=== PATIENT | female | born 1990 | race Caucasian/White ===

== ENCOUNTER → 2017-07-09 | Outpatient (CLI) | payer BC | LOC: M LAB 13:04 | PROVIDERS: ATTEND Family Medicine | DX: Z00.00 Encounter for general adult medical examination without abnormal findings (principal) ==

== ENCOUNTER → 2017-07-13 | Outpatient (REF) | payer BC | LOC: M LAB REF 12:45 | PROVIDERS: ATTEND Family Medicine | DX: N72 Inflammatory disease of cervix uteri (principal) | CPT/HCPCS: 87491; 87591; G0123 ==

== ENCOUNTER → 2017-10-04 | Outpatient (REF) | payer BC | LOC: M LAB REF 19:52 | PROVIDERS: ATTEND Physician Assistant | DX: J02.9 Acute pharyngitis, unspecified (principal) ==

== ENCOUNTER → 2017-11-15 | Outpatient (REF) | payer BC ==
[2017-11-15 14:13] LABS: HCG, SERUM QUANTITATIVE 12 MIU/ML
== END ==
LOC: M LAB REF 12:28
DX: O36.80X0 Pregnancy with inconclusive fetal viability, not applicable or unspecified (principal); Z32.02 Encounter for pregnancy test, result negative
CPT/HCPCS: 84702

== ENCOUNTER 2017-11-17 14:40 | Emergency (ER) | payer BC ==
[2017-11-17 16:56] LABS: MEAN CORPUSCULAR HEMOGLOBIN 26.9 pg (27.0-33.0); MEAN CORPUSCULAR HGB CONC 32.4 g/dl (32.0-36.5); MEAN CORPUSCULAR VOLUME 82.9 fl (80.0-96.0); PLATELET COUNT, AUTOMATED 268 10^3/uL (150-450); RED CELL DISTRIBUTION WIDTH 13.3 % (11.5-14.5); WHITE BLOOD COUNT 7.2 10^3/uL (4.0-10.0)
[2017-11-17 17:21] LABS: HCG, SERUM QUANTITATIVE 4 MIU/ML
== END 2017-11-17 18:35 | disposition home or self-care (01) ==
LOC: M ED 14:40
DX: O03.9 Complete or unspecified spontaneous abortion without complication (principal); Z88.0 Allergy status to penicillin
CPT/HCPCS: 76801

== ENCOUNTER → 2017-11-20 | Outpatient (REF) | payer SELFPAY ==
[2017-11-20 18:22] LABS: HCG, SERUM QUANTITATIVE < 1.0 MIU/ML
== END ==
LOC: M LAB REF 16:55
DX: O03.9 Complete or unspecified spontaneous abortion without complication (principal)

== ENCOUNTER → 2018-01-14 | Outpatient (REF) | payer SELFPAY ==
[2018-01-14 18:08] LABS: HEMATOCRIT 38.3 % (36.0-47.0); HEMOGLOBIN 12.3 g/dl (12.0-16.0); MEAN CORPUSCULAR HEMOGLOBIN 26.9 pg (27.0-33.0); MEAN CORPUSCULAR HGB CONC 32.1 g/dl (32.0-36.5); MEAN CORPUSCULAR VOLUME 83.8 fl (80.0-96.0); PLATELET COUNT, AUTOMATED 271 10^3/uL (150-450); RED BLOOD COUNT 4.57 10^6/uL (4.00-5.40); RED CELL DISTRIBUTION WIDTH 13.7 % (11.5-14.5); WHITE BLOOD COUNT 11.8 10^3/uL (4.0-10.0)
[2018-01-14 18:43] LABS: HCG, SERUM QUANTITATIVE 22479 MIU/ML
[2018-01-16 11:28] LABS: RUBELLA IgG QUALITATIVE IMMUNE (IMMUNE)
[2018-01-16 11:32] LABS: HEPATITIS B SURFACE ANTIGEN NEGATIVE (NEGATIVE)
[2018-01-16 11:57] LABS: HIV 1&2 SCREEN CENTAUR NEGATIVE (NEGATIVE)
[2018-01-16 11:57] LABS: HEPATITIS C VIRUS ABY INDEX 0.1 INDEX (<0.8)
== END ==
LOC: M LAB REF 17:03
DX: O36.80X0 Pregnancy with inconclusive fetal viability, not applicable or unspecified (principal)

== ENCOUNTER → 2018-02-13 | Outpatient (REF) | payer BC ==
[2018-02-13 19:09] LABS: CHLAMYDIA DNA AMPLIFICATION NEGATIVE (NEGATIVE); GC DNA AMPLIFICATION NEGATIVE (NEGATIVE)
== END ==
LOC: M LAB REF 17:09
DX: Z11.3 Encounter for screening for infections with a predominantly sexual mode of transmission (principal)
CPT/HCPCS: 87591

== ENCOUNTER → 2018-06-19 | Outpatient (CLI) | payer BC ==
[2018-06-19 14:29] LABS: HEMATOCRIT 34.5 % (36.0-47.0); HEMOGLOBIN 11.4 g/dl (12.0-15.5); MEAN CORPUSCULAR HEMOGLOBIN 27.8 pg (27.0-33.0); MEAN CORPUSCULAR VOLUME 84.1 fl (80.0-96.0); PLATELET COUNT, AUTOMATED 246 10^3/uL (150-450); RED CELL DISTRIBUTION WIDTH 13.6 % (11.5-14.5)
[2018-06-19 14:42] LABS: GLUCOSE CHALLENGE TEST 1 HOUR 121 MG/DL (LESS THAN 140)
== END ==
LOC: M LAB 12:10
DX: Z34.82 Encounter for supervision of other normal pregnancy, second trimester (principal); Z3A.00 Weeks of gestation of pregnancy not specified
CPT/HCPCS: 82950

== ENCOUNTER → 2018-07-30 | Outpatient (REF) | payer BC ==
[2018-07-30 19:03] LABS: TOTAL PROTEIN,RANDOM URINE 11.9 MG/DL (0.0-12.0)
[2018-07-30 19:03] LABS: CREATININE,RANDOM URINE 80.9 MG/DL
== END ==
LOC: M LAB REF 16:50
DX: Z34.83 Encounter for supervision of other normal pregnancy, third trimester (principal); R03.0 Elevated blood-pressure reading, without diagnosis of hypertension
CPT/HCPCS: 82570

== ENCOUNTER → 2018-08-08 | Outpatient (REF) | payer BC | LOC: M LAB REF 13:38 | DX: O13.3 Gestational [pregnancy-induced] hypertension without significant proteinuria, third trimester (principal) ==

== ENCOUNTER → 2018-08-27 | Outpatient (REF) | payer BC ==
[2018-08-27 19:24] LABS: CREATININE,RANDOM URINE 47.8 MG/DL
[2018-08-27 19:24] LABS: TOTAL PROTEIN,RANDOM URINE 10.7 MG/DL (0.0-12.0)
[2018-08-27 20:11] LABS: HEMATOCRIT 36.6 % (36.0-47.0); HEMOGLOBIN 11.7 g/dl (12.0-15.5); MEAN CORPUSCULAR HEMOGLOBIN 27.3 pg (27.0-33.0); MEAN CORPUSCULAR VOLUME 85.5 fl (80.0-96.0); PLATELET COUNT, AUTOMATED 240 10^3/uL (150-450); RED BLOOD COUNT 4.28 10^6/uL (4.00-5.40); RED CELL DISTRIBUTION WIDTH 13.9 % (11.5-14.5); WHITE BLOOD COUNT 12.2 10^3/uL (4.0-10.0)
[2018-08-27 20:30] LABS: ALT/SGPT 15 U/L (12-78); AST/SGOT 10 U/L (7-37); BILIRUBIN,TOTAL 0.5 MG/DL (0.2-1.0); CREATININE FOR GFR 0.67 MG/DL (0.55-1.30); GLOMERULAR FILTRATION RATE > 60.0 (>60); LDH LACTATE DEHYDROGENASE 142 U/L (84-246); URIC ACID 3.2 MG/DL (2.6-6.0)
== END ==
LOC: M LAB REF 16:35
DX: O13.3 Gestational [pregnancy-induced] hypertension without significant proteinuria, third trimester (principal); Z3A.37 37 weeks gestation of pregnancy
CPT/HCPCS: 84460

== ENCOUNTER 2018-09-04 04:11 | Inpatient (IN) | payer BC ==
[2018-09-04 05:39] LABS: BASO % 0.2 % (0.0-1.0); EOS # 0.2 10^3/uL (0.0-0.50); EOS % 1.2 % (0.0-3.0); HEMATOCRIT 37.4 % (36.0-47.0); HEMOGLOBIN 12.4 g/dl (12.0-15.5); IMMATURE GRANULOCYTE % 0.6 % (0-3.0); LYMPH # 2.4 10^3/uL (1.5-6.5); LYMPH % 17.6 % (24.0-44.0); MEAN CORPUSCULAR HEMOGLOBIN 27.6 pg (27.0-33.0); MEAN CORPUSCULAR HGB CONC 33.2 g/dl (32.0-36.5); MEAN CORPUSCULAR VOLUME 83.1 fl (80.0-96.0); MONO # 0.7 10^3/uL (0.0-0.8); MONO % 5.4 % (0.0-5.0); NEUTROPHILS # 10.4 10^3/uL (1.8-7.7); PLATELET COUNT, AUTOMATED 239 10^3/uL (150-450); WHITE BLOOD COUNT 13.8 10^3/uL (4.0-10.0)
[2018-09-04] MEDS ORDERED: FENTANYL 2MCG/ML ROPIVACAINE 0.2% IN 0.9% NACL 200ML IVBAG As Ordered (06:33)
[2018-09-04] MEDS: FENTANYL/ROPIVACAINE/NACL BAG 200 ML EPIDURAL (07:08)
[2018-09-04] MEDS ORDERED: EPIDURAL COMMENT XX (07:30)
[2018-09-04] MEDS ORDERED: EPIDURAL/PCA KEYS XX (07:30)
[2018-09-04] MEDS ORDERED: diphenhydrAMINE INJ 50MG/ML VIAL (J1200) IV (07:30)
[2018-09-04] MEDS ORDERED: ONDANSETRON 4MG/2ML VIAL (J2405) IV (07:30)
[2018-09-04] MEDS ORDERED: REFRIGERATOR IV KEYS XX (07:30)
[2018-09-04] MEDS ORDERED: NALOXONE INJ 0.4 MG/1 ML VIAL (J2310) IV (07:30)
[2018-09-04] MEDS ORDERED: ePHEDrine SULFATE 25 MG/5 ML(5MG/ML) SYRINGE IV (07:30)
[2018-09-04] MEDS ORDERED: LACTATED RINGER'S 1000 ML IV (07:30)
[2018-09-04] MEDS: OXYTOCIN DRIP 30 UNITS in APPROPRIATE DILUENT 1 EA IV (08:37)
[2018-09-04] MEDS: LR 1,000 ML IV (11:17)
[2018-09-04] MEDS ORDERED: OXYTOCIN DRIP 30 UNITS in APPROPRIATE DILUENT 1 EA IV (14:17)
[2018-09-04] MEDS ORDERED: RHOGAM 300 MCG (1500 IU) INJ (J2790) IM (14:30)
[2018-09-04] MEDS ORDERED: METHYLERGONOVINE MALEATE 0.2 MG TAB PO (14:30)
[2018-09-04] MEDS ORDERED: MEASLES,MUMPS,RUBELLA VACCINE INJ (MMR-II) (90707) SC (14:30)
[2018-09-04] MEDS ORDERED: ANUSOL HC CREAM 30GM TOP (14:30)
[2018-09-04 14:33] LABS: CORD GAS HCO3 V 21.8 MEQ/L; CORD GAS O2 SAT V 53.2 %; CORD GAS PCO2 V 51.6 mmHg; CORD GAS PH V 7.243 UNITS; CORD GAS PO2 V 27.6 mmHg; CORD GAS SBC V 18.6 MEQ/L; CORD GAS TCO2 V 23.4 MEQ/L
[2018-09-04 14:37] LABS: CORD GAS ABE A -6.6; CORD GAS HCO3 A 23.1 MEQ/L; CORD GAS O2 SAT A 20.6 %; CORD GAS PH A 7.168 UNITS; CORD GAS PO2 A 14.4 mmHg; CORD GAS SBC A 17.5 MEQ/L; CORD GAS TCO2 A 25.1 MEQ/L
[2018-09-04] MEDS: IBUPROFEN 800 MG TAB PO (20:07)
[2018-09-05] MEDS: IBUPROFEN 800 MG TAB PO ×3 (03:16→20:00)
[2018-09-05] MEDS: PRENATAL VITAMINS CHEWABLE TABLET PO (09:43)
[2018-09-05] MEDS: INFLUENZA QUADRIVALENT PF VACCINE 0.5ML SYRINGE (90686) IM (10:24)
[2018-09-05] MEDS: ACETAMINOPHEN 500 MG TAB PO (16:31)
[2018-09-05] MEDS: DIBUCAINE 1% OINTMENT 30GM TOP (20:00)
[2018-09-05] MEDS: DOCUSATE SODIUM 100 MG CAP PO (20:00)
[2018-09-06] MEDS: IBUPROFEN 800 MG TAB PO (05:31)
[2018-09-06] MEDS: PRENATAL VITAMINS CHEWABLE TABLET PO (08:50)
[2018-09-06] MEDS: ACETAMINOPHEN 500 MG TAB PO (08:55)
== END 2018-09-06 12:05 | disposition home or self-care (01) | DRG 560 ==
LOC: M LDO 04:11 → M LDI 05:13 → M OBS 16:31
PROVIDERS: Obstetrics & Gynecology
PROC: 10E0XZZ Delivery of Products of Conception, External Approach (ICD-10-PCS; principal; 2018-09-04)
DX: O69.81X0 Labor and delivery complicated by cord around neck, without compression, not applicable or unspecified (principal); Z3A.39 39 weeks gestation of pregnancy; Z37.0 Single live birth

== ENCOUNTER → 2019-11-07 | Outpatient (CLI) | payer BC ==
[~2019-11-07] MED LIST: IBUP-1114 PO; MAPA500T2 PO; PRENTAB9 PO
[2019-11-07 18:20] LABS: BASO % 0.4 % (0.0-1.0); EOS # 0.1 10^3/uL (0.0-0.5); EOS % 1.6 % (0.0-3.0); HEMATOCRIT 41.2 % (36.0-47.0); MEAN CORPUSCULAR HEMOGLOBIN 26.2 pg (27.0-33.0); MEAN CORPUSCULAR HGB CONC 31.6 g/dl (32.0-36.5); MEAN CORPUSCULAR VOLUME 82.9 fl (80.0-96.0); MONO # 0.7 10^3/uL (0.0-0.8); MONO % 8.2 % (0.0-5.0); NEUTROPHILS # 3.7 10^3/uL (1.5-8.5); NEUTROPHILS % 42.7 % (36.0-66.0); PLATELET COUNT, AUTOMATED 295 10^3/uL (150-450); RED BLOOD COUNT 4.97 10^6/uL (4.00-5.40); WHITE BLOOD COUNT 8.6 10^3/uL (4.0-10.0)
[2019-11-07 19:09] LABS: HIV 1&2 SCREEN CENTAUR NEGATIVE (NEGATIVE); RUBELLA IgG QUALITATIVE IMMUNE (IMMUNE)
[2019-11-07 19:56] LABS: CHLAMYDIA DNA AMPLIFICATION NEGATIVE (NEGATIVE); GC DNA AMPLIFICATION NEGATIVE (NEGATIVE)
[2019-11-10 10:14] LABS: HEPATITIS C VIRUS ABY INDEX 0.2 INDEX (<0.8)
== END ==
LOC: M PLALAB 15:56
PROVIDERS: ATTEND Advanced Practice Midwife
DX: Z34.81 Encounter for supervision of other normal pregnancy, first trimester (principal)

== ENCOUNTER → 2019-11-13 | Outpatient (CLI) | payer BC ==
--- NOTE | 2019-11-13 14:31 | REP ---
Clinical: Dating and viability. Technique: As abdominal and transvaginal first trimester obstetrical ultrasound with color Doppler evaluation. Findings: Single live early intrauterine is appreciated. Gestational sac with yolk sac and pole identified. [place]-rump length of 27 mm corresponds to 9 weeks 3 days gestational age with estimated date of delivery 06/14/2020 . heart rate equals 171 beats per minute. Adjacent ovoid anechoic collection is appreciated which may represent a subchorionic hemorrhage or non-developed twin gestation (based on the given history by patient). Impression: 1. Single live early intrauterine at 9 weeks 3 days gestational age. 2. Curvilinear collection adjacent to the normal may represent a subchorionic hemorrhage or involuting empty twin gestational sac. 3. Complete anatomical assessment should be performed and 19-20 weeks. Electronically Signed by Ermais Campuzano MD 11/13/2019 02:23 P
== END ==
LOC: M RAD 13:33
PROVIDERS: ATTEND Advanced Practice Midwife
DX: Z34.81 Encounter for supervision of other normal pregnancy, first trimester (principal); Z3A.09 9 weeks gestation of pregnancy

== ENCOUNTER → 2020-01-28 | Outpatient (CLI) | payer BC | LOC: M PLALAB 15:22 | PROVIDERS: ATTEND Nurse Practitioner Women's Health | DX: Z13.79 Encounter for other screening for genetic and chromosomal anomalies (principal) ==

== ENCOUNTER → 2020-02-23 | Outpatient (CLI) | payer BC ==
--- NOTE | 2020-02-23 12:41 | REP ---
OB ULTRASOUND: Real-time sonographic evaluation of the gravid uterus is performed. There is a single living intrauterine gestation. The estimated gestational age is 24 weeks 0 days, EDC 06/14/2020. Today's measurements indicate appropriate growth. Biometry and Growth: BPD 57 mm = 23 weeks 4 days, 36th percentile HC 215 mm = 23 weeks 4 days, 34th percentile AC 187 mm = 23 weeks 3 days, 39th percentile FL 42 mm = 23 weeks 4 days, 38th percentile HC/AC ratio 1.15 within normal range of 1.02 to 1.21. Estimated weight 601 grams, 30th percentile. SEEN/GROSSLY UNREMARKABLE Lateral ventricles Yes Posterior fossa Yes Upper lip No Four-chamber heart Yes LVOT Yes RVOT Yes Stomach Yes Cord insertion Yes Three vessel cord Yes Kidneys Yes Bladder Yes Spine Yes Cervical length: Closed and measures 3.3 cm in length. heart rate: 144 beats per minute. position: Breech. Placenta: Posterior and grade 0 with no previa or abruption. Amniotic fluid: Within normal limits.
== END ==
LOC: M WHC 09:47
PROVIDERS: ATTEND Advanced Practice Midwife
DX: O99.341 Other mental disorders complicating pregnancy, first trimester (principal); F99 Mental disorder, not otherwise specified; Z3A.24 24 weeks gestation of pregnancy

== ENCOUNTER → 2020-03-19 | Outpatient (CLI) | payer BC ==
[2020-03-19 13:16] LABS: HEMATOCRIT 37.2 % (36.0-47.0); MEAN CORPUSCULAR HEMOGLOBIN 27.3 pg (27.0-33.0); MEAN CORPUSCULAR HGB CONC 32.3 g/dl (32.0-36.5); MEAN CORPUSCULAR VOLUME 84.5 fl (80.0-96.0); PLATELET COUNT, AUTOMATED 240 10^3/uL (150-450); WHITE BLOOD COUNT 9.8 10^3/uL (4.0-10.0)
== END ==
LOC: M LAB 11:03
PROVIDERS: ATTEND Advanced Practice Midwife
DX: Z34.92 Encounter for supervision of normal pregnancy, unspecified, second trimester (principal); Z36.89 Encounter for other specified antenatal screening

== ENCOUNTER → 2020-04-09 | Outpatient (CLI) | payer BC | LOC: M LAB 07:47 | PROVIDERS: ATTEND Advanced Practice Midwife | DX: O99.810 Abnormal glucose complicating pregnancy (principal) ==

== ENCOUNTER → 2020-05-18 | Outpatient (REF) | payer BC | LOC: M SFHCWAGY 10:28 | PROVIDERS: ATTEND Obstetrics & Gynecology | DX: Z34.83 Encounter for supervision of other normal pregnancy, third trimester (principal); Z3A.36 36 weeks gestation of pregnancy ==

== ENCOUNTER → 2020-06-03 | Outpatient (CLI) | payer BC ==
[~2020-06-03] MED LIST changes: +DOCU100C16 PO; +IBUP80TA PO; +OXYC1TAB23 PO
== END ==
LOC: M LABSMTC 11:40
PROVIDERS: ATTEND Anesthesiology
DX: Z01.818 Encounter for other preprocedural examination (principal); Z11.59 Encounter for screening for other viral diseases
CPT/HCPCS: C9803; U0003

== ENCOUNTER 2020-06-08 05:25 | Inpatient (IN) | payer BC ==
[~2020-06-08] VITALS: Ht 170.2 cm; Wt 113.2 kg
[2020-06-08] VITALS (7 sets, daily range): BP systolic 111–134; BP diastolic 61–79
[~2020-06-08 05:25] MED LIST changes: -DOCU100C16 PO; -IBUP80TA PO; -OXYC1TAB23 PO
[2020-06-08] MEDS ORDERED: BICITRA 30ML SOLN UDC PO ONE (06:00)
[2020-06-08] MEDS ORDERED: ceFAZolin SOD 2 GM in IV 1 EA IV ONE (06:00)
[2020-06-08] MEDS ORDERED: LR 1,000 ML IV ONE (06:00)
[2020-06-08 06:41] LABS: HEMATOCRIT 34.8 % (36.0-47.0); HEMOGLOBIN 11.2 g/dl (12.0-15.5); MEAN CORPUSCULAR HEMOGLOBIN 26.6 pg (27.0-33.0); MEAN CORPUSCULAR HGB CONC 32.2 g/dl (32.0-36.5); MEAN CORPUSCULAR VOLUME 82.7 fl (80.0-96.0); PLATELET COUNT, AUTOMATED 229 10^3/uL (150-450); RED BLOOD COUNT 4.21 10^6/uL (4.00-5.40); WHITE BLOOD COUNT 10.1 10^3/uL (4.0-10.0)
[2020-06-08] MEDS ORDERED: LR 1,000 ML IV SCH (07:00)
[2020-06-08] MEDS ORDERED: dexameTHASONE 4 MG/ML 1ML VIAL (J1100 PER 1MG) As Ordered ONE (07:18)
[2020-06-08] MEDS ORDERED: MORPHINE PRES-FREE INJ 10 MG/10 ML VIAL (J2274) As Ordered ONE (07:18)
[2020-06-08] MEDS ORDERED: ONDANSETRON 4MG/2ML VIAL As Ordered ONE ×2 (07:18→07:19)
[2020-06-08] MEDS ORDERED: ePHEDrine SULFATE 25 MG/5 ML(5MG/ML) SYRINGE As Ordered ONE (08:14)
[2020-06-08] MEDS ORDERED: PHENYLephrine HCL 500 MCG/5 ML (100MCG/ML) SYRINGE (J2370) As Ordered ONE (08:14)
[2020-06-08] MEDS ORDERED: OXYTOCIN INJ 10 UNITS/ML VIAL (J2590) As Ordered ONE (08:34)
[2020-06-08] MEDS ORDERED: OXYTOCIN DRIP 30 UNITS in IV 1 EA IV SCH (08:55)
[2020-06-08] MEDS ORDERED: OXYC1TAB23 PO (08:58)
[2020-06-08] MEDS ORDERED: IBUP80TA PO (08:59)
[2020-06-08] MEDS ORDERED: DOCU100C16 PO (08:59)
[2020-06-08] MEDS: DOCUSATE SODIUM 100 MG CAP PO SCH ×2 (09:00→20:14)
[2020-06-08] MEDS ORDERED: ONDANSETRON 4 MG TAB PO PRN (09:00)
[2020-06-08] MEDS ORDERED: ACETAMINOPHEN 500 MG TAB PO PRN (09:00)
[2020-06-08] MEDS ORDERED: PERCOCET 5MG/325MG TAB PO PRN (09:00)
[2020-06-08] MEDS ORDERED: RHOGAM 300 MCG (1500 IU) INJ (J2790) IM SCH (09:00)
[2020-06-08] MEDS ORDERED: MEASLES,MUMPS,RUBELLA VACCINE INJ (MMR-II) (90707) SC SCH (09:00)
[2020-06-08] MEDS: PRENATAL VITAMINS CHEWABLE TABLET PO SCH (09:00)
[2020-06-08] MEDS ORDERED: ONDANSETRON 4MG/2ML VIAL IV PRN ×2 (09:15→10:30)
[2020-06-08] MEDS ORDERED: HYDROMORPHONE HCL 0.5 MG/ 0.5 ML SYRINGE (J1170 PER 1) IV PRN (09:15)
[2020-06-08] MEDS ORDERED: diphenhydrAMINE 50MG/ML VIAL (J1200) IV PRN ×2 (09:15→10:30)
[2020-06-08] MEDS ORDERED: oxyCODONE 5MG TAB PO PRN (09:15)
[2020-06-08] MEDS ORDERED: MEPERIDINE INJ 25 MG/ML VIAL (J2175) IV PRN (09:15)
[2020-06-08] MEDS ORDERED: fentaNYL 100 MCG/2 ML INJECTION (J3010) IV PRN (09:15)
[2020-06-08] MEDS ORDERED: OXYTOCIN 30 UNITS IN 0.9% NaCl 500ML IV BAG (J2590) As Ordered ONE (09:31)
[2020-06-08] MEDS ORDERED: KETOROLAC 30 MG/ML 1ML VIAL As Ordered ONE (09:31)
[2020-06-08] MEDS: KETOROLAC 30 MG/ML 1ML VIAL IV SCH ×3 (09:32→20:14)
[2020-06-08] MEDS: LR 1,000 ML IV SCH ×2 (09:59→18:13)
[2020-06-08] MEDS ORDERED: NALOXONE INJ 0.4MG/1ML VIAL (J2310 PER 1MG) IV PRN ×2 (10:30)
[2020-06-08] MEDS: METOCLOPRAMIDE INJ 10MG/2ML VIAL (J2765 PER 1) IV PRN ×2 (10:32→18:12)
[2020-06-09] MEDS: LR 1,000 ML IV SCH (00:55)
[2020-06-09 02:19] VITALS: BP 117/60
[2020-06-09] MEDS: KETOROLAC 30 MG/ML 1ML VIAL IV SCH (03:01)
[2020-06-09 06:29] VITALS: BP 95/51
--- NOTE | 2020-06-09 06:48 | IPNPDOC ---
Progress Note Date of Service: Jun 09, 2020 Day#: 1 Progress Note SUBJECT: Doing well without complaints. Was unable to void and Raines catheter was reinserted this morning. Pain is well-controlled. Reports minimal lochia. OBJECTIVE: VITAL SIGNS: Within normal limits, afebrile. Alert and oriented times three. Abdomen: Fundus firm at U-2. Soft, NTTP. Incision: Dressed Ext: neg calf tenderness. ASSESSMENT: Postoperative/ day #1 , section with tubal ligation. Recovering in stable condition. PLAN: 1. Continue routine care 2. Discharge plans for tomorrow VS, I&O, 24H, Fishbone Vital Signs/I&O Vital Signs Date Time Temp Pulse Resp B/P (MAP) Pulse Ox O2 Delivery O2 Flow Rate FiO2 06/09/20 06:29 98.5 73 18 95/51 (66) 98 06/08/20 18:02 Room Air I&O- Last 24 Hours up to 6 AM 06/09/20 06:00 Intake Total 5050 ml Output Total 4150 ml Balance 900 ml PRAVEEN MORILLO MD. Jun 09, 2020 06:48
[2020-06-09] MEDS: DOCUSATE SODIUM 100 MG CAP PO SCH ×2 (07:54→21:27)
[2020-06-09] MEDS: PRENATAL VITAMINS CHEWABLE TABLET PO SCH (07:54)
[2020-06-09] MEDS: PERCOCET 5MG/325MG TAB PO PRN ×3 (07:55→21:27)
[2020-06-09 08:07] LABS: HEMATOCRIT 31.9 % (36.0-47.0); HEMOGLOBIN 10.1 g/dl (12.0-15.5); MEAN CORPUSCULAR HEMOGLOBIN 26.2 pg (27.0-33.0); MEAN CORPUSCULAR HGB CONC 31.7 g/dl (32.0-36.5); MEAN CORPUSCULAR VOLUME 82.9 fl (80.0-96.0); PLATELET COUNT, AUTOMATED 199 10^3/uL (150-450); RED BLOOD COUNT 3.85 10^6/uL (4.00-5.40); WHITE BLOOD COUNT 11.9 10^3/uL (4.0-10.0)
[2020-06-09 10:00] VITALS: BP 121/59
[2020-06-09] MEDS: IBUPROFEN 800 MG TAB PO SCH ×2 (10:47→18:30)
[2020-06-09 14:00] VITALS: BP 114/59
[2020-06-09 18:00] VITALS: BP 115/70
[2020-06-09 22:22] VITALS: BP 127/70
[2020-06-10 02:17] VITALS: BP 125/71
[2020-06-10] MEDS: IBUPROFEN 800 MG TAB PO SCH (03:38)
[2020-06-10] MEDS: PERCOCET 5MG/325MG TAB PO PRN (06:11)
[2020-06-10 06:28] VITALS: BP 127/73
[2020-06-10] MEDS: DOCUSATE SODIUM 100 MG CAP PO SCH (08:51)
[2020-06-10] MEDS: PRENATAL VITAMINS CHEWABLE TABLET PO SCH (08:51)
--- NOTE | 2020-06-10 09:49 | DSES ---
DATE OF ADMISSION: 06/08/2020 DATE OF DISCHARGE: DISCHARGE DIAGNOSIS: Repeat section at term with bilateral tubal ligation, postoperative day #2, stable condition. SURGEON: Dr. Miguel Angel Morton LABOR RELATIONS ANALYST: Savannah Pickering CNM HISTORY: Anneliese is a 29-year-old, 2, para 2-0-0-2 now, who underwent a primary section at term due to breech presentation and undesired fertility. Her surgery was uncomplicated. Estimated blood loss was 500 mL. She delivered a live female weighing 3460 grams, 7 pounds 10 ounces, Apgars 8 and 9. Her postoperative care has been uncomplicated. She is voiding without difficulty, tolerating by mouth fluids and a regular diet. She does report passing flatus. She has been out of bed for self care, gonzalez care and infant care. Her pain has been well managed with by mouth pain medications and she is breast-feeding well. OBJECTIVE: Temperature 97.4, pulse 84, respirations 18, blood pressure (BP) is 125/71. She is alert and oriented x3. Breasts are soft, nontender. Nipples are intact. She is using the nipple shield for breast feeding. Her abdomen is fundus firm at umbilicus. Incision with the dressing in place. There is no new drainage noted. Her perineum is intact with lochia rubra scant. Bilateral lower extremities with +1 pitting edema. Preoperative CBC on 06/08/2020 with hemoglobin of 11.2, hematocrit 34.8, platelets 229. Postoperative CBC on 06/09/2020 with a hemoglobin of 10.1, hematocrit of 31.9, platelets 199. PLAN: Discharge the patient home today. Her prescriptions have been E-prescribed by Dr. Miguel Angel Morton to her pharmacy. I did review discharge instructions that include breast care, incision care, gonzalez care and pelvic rest, activity and lifting restrictions, danger signs to report and access to her care provider. The patient and her 's questions have been answered and they do request discharge to home.
== END 2020-06-10 10:50 | disposition home or self-care (01) | DRG 540 ==
LOC: M LDI 05:25 → M OBS 10:18
PROVIDERS: ADMIT Obstetrics & Gynecology; ATTEND Obstetrics & Gynecology
PROC: 0UB70ZZ Excision of Bilateral Fallopian Tubes, Open Approach (ICD-10-PCS; 2020-06-08)
PROC: 10D00Z1 Extraction of Products of Conception, Low, Open Approach (ICD-10-PCS; principal; 2020-06-08 07:30)
DX: O32.1XX0 Maternal care for breech presentation, not applicable or unspecified (principal); Z30.2 Encounter for sterilization; Z3A.39 39 weeks gestation of pregnancy; Z37.0 Single live birth

== ENCOUNTER → 2022-03-31 | Outpatient (CLI) | payer BC ==
[~2022-03-31] MED LIST changes: +DOCU100C16 PO; +IBUP80TA PO; +ISOVUE-370 76% 100ML VIAL ONE; +OXYC1TAB23 PO
== END ==
LOC: M PLAIMG 13:50
PROVIDERS: ATTEND Physician Assistant
DX: H93.A1 Pulsatile tinnitus, right ear (principal)
CPT/HCPCS: 70496; 70498; Q9967

== ENCOUNTER → 2023-02-07 | Outpatient (REF) | payer BC ==
[~2023-02-07] MED LIST changes: -ISOVUE-370 76% 100ML VIAL ONE
== END ==
LOC: M LAB REF 18:30
PROVIDERS: ATTEND Family Medicine
DX: Z12.4 Encounter for screening for malignant neoplasm of cervix (principal)